=== PATIENT | female | born 1945 | race Caucasian/White ===

== ENCOUNTER 2018-03-19 10:49 | Outpatient (CLI) | payer MEDICARE ==
--- NOTE | 2018-03-19 11:58 | RAD ---
TWO VIEWS RIGHT SHOULDER: Date: 03-19-18 History: Chronic right shoulder pain. FINDINGS: Coracoclavicular and acromioclavicular distances are within normal limits. A true internally rotated view or scapular Y view are not obtained on this exam. No definite dislocation is seen on the provide d images and no fracture is seen. No other osseous abnormality. IMPRESSION: No acute osseous abnormality right shoulder. POS: [facility]
--- NOTE | 2018-03-19 11:59 | RAD ---
PA AND LATERAL CHEST XRAY: DATE: 03/19/18. HISTORY: Chest pain. COMPARISON: 02/03/16. FINDINGS: Cardiac silhouette and pulmonary vasculature are within normal limits. The lungs are clear. Minimal symmetrical biapical pleural thickening is present. There has been no interval change from the prio r exam. IMPRESSION: No acute cardiopulmonary process. POS: [facility]
== END 2018-03-19 10:50 | disposition home or self-care (01) ==
LOC: MADRAD 10:49
PROVIDERS: ATTEND Obstetrics & Gynecology
DX: R07.89 Other chest pain (principal)
CPT/HCPCS: 71046